=== PATIENT | male | born 1950 | race Caucasian/White ===

== ENCOUNTER → 2017-05-16 | Outpatient (CLI) | payer MEDICARE, BC ==
[~2017-05-16] MED LIST: ASPIRIN 325 MG TABLET ONE; CLOPIDOGREL BISULFATE 75 MG TABLET ONE; DIAZEPAM 10 MG TABLET. ONE; EPTIFIBATIDE BOLUS 2,000 MCG/ML 10ML VIAL. IV ONE; HEPARIN SODIUM 5,000 UNIT/ML VIAL for PCVC. ONE; IODIXANOL 270 MG/ML 100 ML VIAL. ONE; IV NORMAL SALINE 1000ML BAG 1,000 ML ONE; IV NORMAL SALINE 500ML BAG 0 ML ONE; LIDOCAINE 1% Multi-Dose 20 ML VIAL. ONE; MIDAZOLAM HCL/PF 2 MG/2 ML VIAL. ONE; NITROGLYCERIN PREMIX 250 ML IV ONE; ONDANSETRON PF 4 MG/2 ML VIAL. ONE; fentaNYL PF VIAL 100 MCG/2 ML VIAL ONE; hydrALAZINE 20 MG/ML VIAL. ONE
--- NOTE | 2017-05-16 18:12 | PCVCINTER ---
EXAM: 1. AORTOGRAM AND BILATERAL LOWER EXTREMITY RUNOFF ANGIOGRAM 2. BILATERAL RENAL ANGIOGRAPHY 3. RIGHT COMMON ILIAC ARTERY STENT PLACEMENT INDICATION: Peripheral arterial disease. Coronary artery disease. Nonhealing ulcer right lower extremity. Hypertension. Renal atherosclerosis. PROCEDURE: Procedure and risks of angiography intervention is appropriate including limb loss stroke and were discussed with the patient's family and consent obtained. The patient's left groin was prepped abnormal sterile fashion. IV conscious sedation was used to procedure with appropriate monitoring for 90 minutes. Ultrasound was used to interrogate the left groin and showed the left common femoral artery to be patent. A permanent spot film was obtained. Under ultrasound guidance access into the left common femoral artery was obtained and a 5 Georgian sheath was placed. Through this a 5 Georgian flush catheter was placed into the abdominal aorta at the level of the renal arteries and AP aortogram was performed. Catheter was positioned at the aortic bifurcation and both oblique views of the pelvis were obtained. Catheter was positioned into the left external iliac artery and left leg runoff angiography was performed. Catheter was exchanged for a visceral catheter was placed into the right renal arteries and right renal angiograms obtained. Catheter was placed into the the left renal arteries and left renal angiograms were obtained. Catheter was advanced to the level of the right external iliac artery and right leg runoff angiography was obtained. Patient was given 4500 units of heparin. A 6 Georgian crossover sheath was placed via the left groin to the level of the right common femoral artery. Stent placement across the areas of high-grade stenosis in the right common iliac artery was carried out with a 6 x 80 Cordis Smart stent with subsequent dilatation to 6.0 mm. Follow-up angiogram was performed. Catheters and wires removed. Sheath was removed and hemostasis obtained using the Exoseal device. No immediate complications. FINDINGS: Aortogram: There is one right and one left renal artery. Mild plaque infrarenal abdominal aorta without significant stenosis. Pelvis: 95% stenosis proximal right common iliac artery within and proximal to a previously placed stent. The right external iliac arteries diffusely small in size. The left common iliac artery is patent. The left external iliac artery is patent. The right and left common femoral and profunda femoral arteries show satisfactory patency. Right renal artery: Minimal plaque proximal vessel does not cause significant stenosis. Left renal artery: Mild stenosis proximal vessel causes mild stenosis which is not flow-limiting. Right leg: The superficial femoral artery is diffusely small and has occlusion throughout most of its length. The distal SFA refills into the abductor canal and then is a small but adequate vessel into a patent popliteal artery with three-vessel runoff. The anterior tibial artery is a dominant runoff vessel. Left leg: Segmental occlusion proximal to mid superficial femoral artery presumably the site of a previous intervention the patient reported at outside facility. Moderate plaque and stenosis in the mid superficial femoral artery. The distal superficial femoral artery shows improved patency as is the popliteal artery. Three-vessel runoff into the foot. Right common iliac artery: Following procedure as above vessel shows good patency. The right external iliac artery has returned to a more normal caliber at the conclusion of the procedure. IMPRESSION: Critical 95% stenosis within previous right common iliac artery stent was treated as above with good patency restored. The right superficial femoral artery is diminutive in size occluded throughout most of its length and would not be ideal for percutaneous revascularization. Segmental occlusion proximal/mid left superficial femoral artery. Patient will return next week for revascularization of this. Patient has well-developed right profunda femoral collaterals which refill the distal SFA and popliteal artery so hopefully with correction of the right iliac inflow healing of the right lower leg and foot wound will now be possible. LOC:[id number]
== END | disposition home or self-care (01) ==
LOC: PCVCINTER 10:29
PROVIDERS: ATTEND Nuclear Medicine Nuclear Cardiology
DX: I70.263 Atherosclerosis of native arteries of extremities with gangrene, bilateral legs (principal); I25.10 Atherosclerotic heart disease of native coronary artery without angina pectoris; I10 Essential (primary) hypertension; I70.1 Atherosclerosis of renal artery
CPT/HCPCS: 36252; 37221; 75716; 76937; 99152; 99153; C1725; C1751; C1760; C1769; C1876; C1894; J0360; J0690; J1644; J2250; J2405; J3010; J3490; J7030; Q9966; J1327; J7040

== ENCOUNTER → 2017-05-23 | Outpatient (CLI) | payer MEDICARE, BC ==
[~2017-05-23] MED LIST changes: -ASPIRIN 325 MG TABLET ONE; -CLOPIDOGREL BISULFATE 75 MG TABLET ONE; -IV NORMAL SALINE 500ML BAG 0 ML ONE; +IV NORMAL SALINE 500ML BAG 500 ML ONE; +NITROGLYCERIN PREMIX 0 ML IV ONE; -NITROGLYCERIN PREMIX 250 ML IV ONE; -ONDANSETRON PF 4 MG/2 ML VIAL. ONE
--- NOTE | 2017-05-23 13:38 | PCVCINTER ---
EXAM: 1. LEFT SUPERFICIAL FEMORAL ARTERY ATHERECTOMY AND DRUG COATED BALLOON ANGIOPLASTY. 2. SECONDARY THROMBECTOMY LEFT SUPERFICIAL FEMORAL ARTERY. INDICATION: Peripheral arterial disease. Coronary artery disease. Nonhealing ulcer right lower extremity. Hypertension. Renal atherosclerosis. PROCEDURE: Procedure and risks of angiography intervention is appropriate including limb loss stroke and were discussed with the patient's family and consent obtained. The patient's right groin was prepped abnormal sterile fashion. IV conscious sedation was used to procedure with appropriate monitoring for 90 minutes. Ultrasound was used to interrogate the right groin and showed the right common femoral artery to be patent. A permanent spot film was obtained. Under ultrasound guidance access into the right common femoral artery was obtained and a 5 Yemeni sheath was placed. Through this a 6 Yemeni crossover sheath was placed via the right groin to the level of the left common femoral artery. Atherectomy of the left superficial femoral artery was performed with 2.0 mm hur[employer]palmerflatt laser atherectomy catheter in the standard fashion. Following atherectomy small areas of thrombus were observed and because of this secondary thrombectomy throughout the left superficial femoral artery was carried out with mechanical suction thrombectomy catheter in the standard fashion. Minimal debris was removed. Following this drug coated balloon angioplasty of the left superficial femoral artery proximally was carried out with a 4 x 80 Medtronic Admiral [employer] DEVELOPER catheter. Follow-up angiogram was performed. Following this drug coated balloon angioplasty of the left superficial femoral artery in its midportion was carried out with a 4 x 150 Medtronic Admiral SFDC DEVELOPER catheter. Follow-up angiogram was performed. Catheters and wires removed. Sheath was removed and hemostasis obtained using the Exoseal device. No immediate complications. FINDINGS: Left superficial femoral artery: Following procedure as above good patency has been restored throughout. IMPRESSION: Areas of high-grade stenosis proximal and mid left superficial femoral artery were treated as above with good patency restored. impression follow up LOC:[id number]
--- NOTE | 2017-05-23 15:00 | PCVCINTER ---
EXAM: 1. LEFT SUPERFICIAL FEMORAL ARTERY ATHERECTOMY AND DRUG COATED BALLOON ANGIOPLASTY. 2. SECONDARY THROMBECTOMY LEFT SUPERFICIAL FEMORAL ARTERY. INDICATION: Peripheral arterial disease. Coronary artery disease. Nonhealing ulcer right lower extremity. Hypertension. Renal atherosclerosis. PROCEDURE: Procedure and risks of angiography intervention is appropriate including limb loss stroke and were discussed with the patient's family and consent obtained. The patient's right groin was prepped abnormal sterile fashion. IV conscious sedation was used to procedure with appropriate monitoring for 90 minutes. Ultrasound was used to interrogate the right groin and showed the right common femoral artery to be patent. A permanent spot film was obtained. Under ultrasound guidance access into the right common femoral artery was obtained and a 5 Monegasque sheath was placed. Through this a 6 Monegasque crossover sheath was placed via the right groin to the level of the left common femoral artery. Atherectomy of the left superficial femoral artery was performed with [address] [employer] laser atherectomy catheter in the standard fashion. Following atherectomy small areas of thrombus were observed and because of this secondary thrombectomy throughout the left superficial femoral artery was carried out with mechanical suction thrombectomy catheter in the standard fashion. Minimal debris was removed. Following this drug coated balloon angioplasty of the left superficial femoral artery proximally was carried out with a 4 x 80 Medtronic Admiral CERTIFIED MAINTENANCE WELDER catheter. Follow-up angiogram was performed. Following this drug coated balloon angioplasty of the left superficial femoral artery in its midportion was carried out with a 4 x 150 Medtronic Admiral CERTIFIED MAINTENANCE WELDER catheter. Follow-up angiogram was performed. Catheters and wires removed. Sheath was removed and hemostasis obtained using the Exoseal device. No immediate complications. FINDINGS: Left superficial femoral artery: Following procedure as above good patency has been restored throughout. IMPRESSION: Areas of high-grade stenosis proximal and mid left superficial femoral artery were treated as above with good patency restored. impression follow up LOC:[id number] DICTATED and SIGNED BY: MARINA TIJERINA MD DATE: 05/23/17 2035 CC: MARINA TIJERINA MD; VALENTINO ARDON MD ~ [facility]
== END | disposition home or self-care (01) ==
LOC: PCVCINTER 09:48
PROVIDERS: ATTEND Nuclear Medicine Nuclear Cardiology
DX: I70.263 Atherosclerosis of native arteries of extremities with gangrene, bilateral legs (principal); I70.1 Atherosclerosis of renal artery; I10 Essential (primary) hypertension
CPT/HCPCS: 37186; 37225; 76937; 99152; 99153; C1751; C1757; C1760; C1769; C1885; C1887; C1894; C2623; J0360; J0690; J1327; J1644; J2250; J3010; J7030; J7040; J3490

== ENCOUNTER → 2017-11-24 | Outpatient (CLI) | payer MEDICARE, BC ==
[~2017-11-24] MED LIST changes: +CLOPIDOGREL BISULFATE 75 MG TABLET; +DIAZEPAM 10 MG TABLET.; -DIAZEPAM 10 MG TABLET. ONE; +EPTIFIBATIDE BOLUS 2,000 MCG/ML 10ML VIAL. IV; -EPTIFIBATIDE BOLUS 2,000 MCG/ML 10ML VIAL. IV ONE; +HEPARIN SODIUM 5,000 UNIT/ML VIAL for PCVC.; -HEPARIN SODIUM 5,000 UNIT/ML VIAL for PCVC. ONE; +HEPARIN for ARTERIAL LINE 0 ML; +IODIXANOL 270 MG/ML 100 ML VIAL.; -IODIXANOL 270 MG/ML 100 ML VIAL. ONE; +IV NORMAL SALINE 1000ML BAG 1,000 ML; -IV NORMAL SALINE 1000ML BAG 1,000 ML ONE; -IV NORMAL SALINE 500ML BAG 500 ML ONE; +LIDOCAINE 1% Multi-Dose 20 ML VIAL.; -LIDOCAINE 1% Multi-Dose 20 ML VIAL. ONE; +MIDAZOLAM HCL/PF 2 MG/2 ML VIAL.; -MIDAZOLAM HCL/PF 2 MG/2 ML VIAL. ONE; -NITROGLYCERIN PREMIX 0 ML IV ONE; +VANCOMYCIN 1GM IVPB FOR OMNI 250 ML; +fentaNYL PF VIAL 100 MCG/2 ML VIAL; -fentaNYL PF VIAL 100 MCG/2 ML VIAL ONE; +hydrALAZINE 20 MG/ML VIAL.; -hydrALAZINE 20 MG/ML VIAL. ONE
== END | disposition home or self-care (01) ==
LOC: PCVCINTER 09:30
DX: I70.211 Atherosclerosis of native arteries of extremities with intermittent claudication, right leg (principal); I25.10 Atherosclerotic heart disease of native coronary artery without angina pectoris; I10 Essential (primary) hypertension; I70.1 Atherosclerosis of renal artery
CPT/HCPCS: 36252; 37186; 37227; 75716; 76937; 99152; 99153; C1725; C1751; C1757; C1760; C1769; C1876; C1885; C1887; C1894; C2623; J0360; J1327; J1644; J2250; J3010; J3370; J7030